=== PATIENT | female | born 1995 | race Caucasian/White ===

== ENCOUNTER 2016-06-11 08:28 | Emergency (ER) | payer BC, OTHER ==
[~2016-06-11] VITALS: Ht 172.7 cm; Wt 54.4 kg
[~2016-06-11 08:28] MED LIST: IBUPROFEN 600600 M1 PO; PAXIL10 MG; PHENERGAN 25 MG25 M1 PO; STOMACH PILL; ZOFRAN ODT4 MG PO
[2016-06-11 09:13] LABS: HEMATOCRIT 35.9 % (37.0-47.0); HEMOGLOBIN 11.9 gm/dL (12.0-15.0); MCH 27.6 pg (26.0-34.0); MCHC 33.3 % (28.0-37.0); MCV 82.9 fL (80.0-100.0); PLATELET COUNT 248 thou/uL (150-400); RBC 4.33 mil/uL (4.20-5.00); RDW 17.5 % (10.5-14.5); WBC 8.6 thou/uL (4.0-11.0)
[2016-06-11 09:16] LABS: MANUAL DIFF YES
[2016-06-11] MEDS ORDERED: PHENERGAN 25 MG25 M1 PO (09:22)
[2016-06-11] MEDS ORDERED: PROMS25 WY RECTAL (09:22)
[2016-06-11 09:24] LABS: ANION GAP 13 mmol/L (7-16); BUN 8 mg/dL (7-18); CALCIUM 9.5 mg/dL (8.5-10.1); CHLORIDE 101 mmol/L (98-107); CO2 21 mmol/L (21-32); CREATININE 0.5 mg/dL (0.6-1.3); GLUCOSE 113 mg/dL (70-99); POTASSIUM 3.5 mmol/L (3.5-5.1); SODIUM 135 mmol/L (136-145)
[2016-06-11 09:33] LABS: ALBUMIN 3.4 g/dL (3.4-5.0); ALKALINE PHOSPHATASE 49 U/L (46-116); DIRECT BILIRUBIN < 0.1 mg/dL (<0.1-0.3); SGOT 6 U/L (15-37); SGPT 12 U/L (30-65); TOTAL BILIRUBIN 0.2 mg/dL (<0.1-1.0); TOTAL PROTEIN 7.5 g/dL (6.4-8.2)
[2016-06-11 09:59] LABS: ABSOLUTE NEUTROPHILS 6.8 thou/uL (1.4-8.2); ANISOCYTOSIS SLIGHT; OVALOCYTES FEW; TOTAL CELL COUNT 100
[2016-06-11] MEDS ORDERED: OSELB75 PO (10:05)
[2016-06-11 10:12] VITALS: BP 103/61
== END 2016-06-11 10:12 | disposition home or self-care (01) ==
LOC: ER 08:28
PROVIDERS: Emergency Medicine
DX: O98.811 Other maternal infectious and parasitic diseases complicating pregnancy, first trimester (principal); O21.0 Mild hyperemesis gravidarum; Z3A.00 Weeks of gestation of pregnancy not specified; J09.X2 Influenza due to identified novel influenza A virus with other respiratory manifestations; F41.9 Anxiety disorder, unspecified; K21.9 Gastro-esophageal reflux disease without esophagitis

== ENCOUNTER 2018-01-02 08:36 | Emergency (ER) | payer OTHER ==
[~2018-01-02] VITALS: Ht 175.3 cm; Wt 56.7 kg
[2018-01-02 08:36] VITALS: BP 119/69
[~2018-01-02 08:36] MED LIST changes: +CITRATE OF MAG296 ML PO; +OSELB75 PO; +PROMS25 WY RECTAL
[2018-01-02 09:11] LABS: URINE BLOOD NEGATIVE (Negative); URINE CLARITY CLEAR; URINE COLOR YELLOW; URINE GLUCOSE-RANDOM* NEGATIVE (Negative); URINE KETONES NEGATIVE (Negative); URINE LEUKOCYTES NEGATIVE (Negative); URINE NITRITE NEGATIVE (Negative); URINE PROTEIN (DIPSTICK) TRACE (Negative); URINE SPECIFIC GRAVITY >= 1.030 (1.005-1.035); URINE UROBILINOGEN 0.2 E.U./dl (0.2-1.0)
[2018-01-02 09:13] LABS: ABSOLUTE NEUTROPHILS 3.8 thou/uL (1.4-8.2); BASOPHILS 0.8 % (0.0-2.0); EOSINOPHILS 2.1 % (0.0-3.0); HEMATOCRIT 38.6 % (37.0-47.0); LYMPHOCYTES 33.3 % (24.0-44.0); MCH 29.9 pg (26.0-34.0); MCHC 33.8 g/dL (28.0-37.0); MCV 88.5 fL (80.0-100.0); MONOCYTES 6.5 % (1.0-8.0); PLATELET COUNT 318 thou/uL (150-400); POLYS 57.3 % (36.0-66.0); RBC 4.37 mil/uL (4.20-5.00); RDW 14.2 % (10.5-14.5); WBC 6.6 thou/uL (4.0-11.0)
[2018-01-02 09:18] LABS: CALCIUM 9.1 mg/dL (8.5-10.1); CREATININE 0.9 mg/dL (0.6-1.0); POTASSIUM 3.3 mmol/L (3.5-5.1)
[2018-01-02 09:23] LABS: ICTOTEST (BILI CONFIRMATORY) Negative (Negative); URINE BILIRUBIN NEGATIVE (Negative)
[2018-01-02 09:24] LABS: ALBUMIN 4.3 g/dL (3.4-5.0); DIRECT BILIRUBIN 0.1 mg/dL (<0.1-0.3); TOTAL BILIRUBIN 0.4 mg/dL (<0.1-1.0); TOTAL PROTEIN 7.8 g/dL (6.4-8.2)
== END 2018-01-02 10:04 | disposition home or self-care (01) ==
LOC: ER 08:36
PROVIDERS: Emergency Medicine
DX: R10.9 Unspecified abdominal pain (principal); R11.2 Nausea with vomiting, unspecified; R19.7 Diarrhea, unspecified; M54.5 Low back pain; R35.0 Frequency of micturition; F41.9 Anxiety disorder, unspecified; K21.9 Gastro-esophageal reflux disease without esophagitis